=== PATIENT | male | born 1985 | race Caucasian/White ===

== ENCOUNTER 2018-02-01 11:15 | Emergency (ER) | payer MEDICAID ==
[~2018-02-01] VITALS: Ht 175.3 cm; Wt 90.9 kg
[~2018-02-01 11:15] MED LIST: CARB200T PO
[2018-02-01] MEDS ORDERED: CARB200T PO (15:27)
[2018-02-01 15:38] VITALS: BP 130/82
== END 2018-02-01 15:40 | disposition home or self-care (01) ==
LOC: ER 11:16
DX: G40.909 Epilepsy, unspecified, not intractable, without status epilepticus (principal); F12.90 Cannabis use, unspecified, uncomplicated; Z79.899 Other long term (current) drug therapy
CPT/HCPCS: 36415; 80156; 93005; 99285

== ENCOUNTER 2019-03-19 10:18 | Outpatient (CLI) | payer MEDICAID | END 2019-03-19 23:59 | disposition home or self-care (01) | LOC: RAD 10:18 | DX: R56.9 Unspecified convulsions (principal) | CPT/HCPCS: 95816 ==

== ENCOUNTER 2019-06-17 09:43 | Emergency (ER) | payer MEDICAID ==
[~2019-06-17] VITALS: Ht 172.7 cm; Wt 75.0 kg
[2019-06-17] MEDS ORDERED: levetiracetam inj 1,000 MG in normal saline 100ml IV soln 90 ML IV STA (09:46)
[2019-06-17] MEDS ORDERED: normal saline 1000ML IV soln IVB ONE (09:50)
[2019-06-17] MEDS ORDERED: LORazepam 2 mg/ml vial IV ONE (09:50)
[2019-06-17] MEDS ORDERED: magnesium 2GM in 50ml NS 50 ML IV ONE (09:50)
[2019-06-17] MEDS ORDERED: divalproex sodium 250mg tablet PO ONE (09:50)
[2019-06-17 10:25] LABS: BASOPHILS % (AUTO) 0.4 % (0-1); EOSINOPHILS # (AUTO) 0.1 X10'3 (0-0.9); EOSINOPHILS % (AUTO) 1.7 % (0-6); HEMATOCRIT 45.9 % (42.0-52.0); HEMOGLOBIN 15.5 g/dl (14.0-17.9); LYMPHOCYTES # (AUTO) 1.5 X10'3 (1.1-4.8); MEAN CORPUSCULAR HEMOGLOBIN 30.4 PG (27.0-31.0); MEAN CORPUSCULAR HGB CONC 33.8 g/dL (33.0-36.5); MEAN CORPUSCULAR VOLUME 89.7 FL (78-98); MEAN PLATELET VOLUME 7.7 FL (7.4-10.4); MONOCYTES # (AUTO) 0.4 X10'3 (0-0.9); MONOCYTES % (AUTO) 8.6 % (2-12); NEUTROPHILS # (AUTO) 3.1 X10'3 (1.8-7.7); NEUTROPHILS % (AUTO) 60.3 % (42-75); PLATELET COUNT 226 X10'3 (140-440); RED BLOOD COUNT 5.12 X10'6 (4.70-6.10); RED CELL DISTRIBUTION WIDTH 12.8 % (11.5-14.5); WHITE BLOOD COUNT 5.1 X10'3 (4.5-11.0)
[2019-06-17 10:47] LABS: ALANINE AMINOTRANSFERASE 42 U/L (12-78); ALBUMIN 3.9 G/DL (3.4-5.0); ALBUMIN/GLOBULIN RATIO 1.3 (1.1-1.5); ALKALINE PHOSPHATASE 93 IU/L (46-116); ANION GAP 12 (8-16); ASPARTATE AMINO TRANSFERASE 24 U/L (10-37); BILIRUBIN,TOTAL 0.4 MG/DL (0.1-1.0); BLOOD UREA NITROGEN 16 MG/DL (7-18); BUN/CREATININE RATIO 15.4 (5.4-32.0); CALCIUM 9.1 MG/DL (8.5-10.1); CHLORIDE 108 MMOL/L (99-107); CREATININE 1.04 MG/DL (0.60-1.10); GLUCOSE 114 MG/DL (70-104); POTASSIUM 3.9 MMOL/L (3.5-5.1); SODIUM 142 MMOL/L (135-145); TOTAL CARBON DIOXIDE 22.4 MMOL/L (24-32); eGFR 83 ML/MIN
[2019-06-17] MEDS ORDERED: DIVA500T9 PO (11:32)
--- NOTE | 2019-06-17 12:01 | NUR ---
MERCEDES GODINEZ DOES NOT WANT URINE
[2019-06-17 12:35] LABS: VALPROATE < 3.0 UG/ML (50-100)
[2019-06-17 13:51] VITALS: BP 114/58
== END 2019-06-17 13:45 | disposition home or self-care (01) ==
LOC: ER 09:43
DX: G40.909 Epilepsy, unspecified, not intractable, without status epilepticus (principal); F12.90 Cannabis use, unspecified, uncomplicated; Z79.899 Other long term (current) drug therapy
CPT/HCPCS: 36415; 80053; 80164; 85025; 93005; 96365; 96366; 96367; 96375; 99284; J1953; J2060; J3475; J7030

== ENCOUNTER 2020-10-13 11:34 | Emergency (ER) | payer MEDICAID ==
[~2020-10-13] VITALS: Ht 165.1 cm; Wt 72.7 kg
[2020-10-13 11:42] VITALS: BP 143/94
--- NOTE | 2020-10-13 11:50 | NUR ---
Pt arrived to unit via SO, pt. ambulatory. Pt calm and cooperative with staff. Pt. changed into unit scrubs, vital signs and physical assessment completed. Pt. denies SI. Pt. resting calmly in bed.
[2020-10-13 12:40] LABS: BASOPHILS % (AUTO) 0.3 % (0-1); EOSINOPHILS % (AUTO) 0.6 % (0-6); HEMATOCRIT 47.3 % (42.0-52.0); HEMOGLOBIN 16.1 g/dl (14.0-17.9); LYMPHOCYTES # (AUTO) 1.3 X10'3 (1.1-4.8); LYMPHOCYTES % (AUTO) 22.3 % (21-51); MEAN CORPUSCULAR HEMOGLOBIN 30.5 PG (27.0-31.0); MEAN CORPUSCULAR HGB CONC 34.1 g/dL (33.0-36.5); MEAN CORPUSCULAR VOLUME 89.4 FL (78-98); MEAN PLATELET VOLUME 7.3 FL (7.4-10.4); MONOCYTES # (AUTO) 0.5 X10'3 (0-0.9); MONOCYTES % (AUTO) 7.8 % (2-12); PLATELET COUNT 191 X10'3 (140-440); RED BLOOD COUNT 5.29 X10'6 (4.70-6.10); RED CELL DISTRIBUTION WIDTH 13.1 % (11.5-14.5); WHITE BLOOD COUNT 5.8 X10'3 (4.5-11.0)
[2020-10-13 12:48] LABS: URINE AMPHETAMINE SCREEN NEGATIVE (Neg); URINE BARBITUATE SCREEN NEGATIVE (Neg); URINE BENZODIAZEPINES SCREEN NEGATIVE (Neg); URINE CANNABINOID SCREEN POSITIVE (Neg); URINE COCAINE SCREEN NEGATIVE (Neg); URINE METHADONE SCREEN NEGATIVE (Neg); URINE OPIATE SCREEN NEGATIVE (Neg); URINE PHENCYCLIDINE SCREEN NEGATIVE (Neg)
[2020-10-13 12:49] LABS: CLARITY,URINE CLEAR (Clear); COLOR,URINE YELLOW (Yellow); GLUCOSE, URINE NEGATIVE (Neg); KETONES,URINE TRACE mg/dl (Neg); LEUKOCYTE ESTERASE ,URINE NEGATIVE (Neg); NITRITES, URINE NEGATIVE (Neg); OCCULT BLOOD,URINE NEGATIVE (Neg); PROTEIN,URINE NEGATIVE (Neg); UROBILINOGEN,URINE 0.2 E.U/dL (0.2-1.0)
[2020-10-13 12:49] LABS: ALANINE AMINOTRANSFERASE 50 U/L (12-78); ALBUMIN 3.9 G/DL (3.4-5.0); ALBUMIN/GLOBULIN RATIO 1.1 (1.1-1.5); ALKALINE PHOSPHATASE 69 IU/L (46-116); ANION GAP 10 (8-16); ASPARTATE AMINO TRANSFERASE 26 U/L (10-37); BILIRUBIN,TOTAL 0.5 MG/DL (0.1-1.0); BLOOD UREA NITROGEN 19 MG/DL (7-18); BUN/CREATININE RATIO 20.9 (5.4-32.0); CALCIUM 9.5 MG/DL (8.5-10.1); CHLORIDE 108 MMOL/L (99-107); CREATININE 0.91 MG/DL (0.60-1.10); GLUCOSE 90 MG/DL (70-104); POTASSIUM 4.3 MMOL/L (3.5-5.1); SODIUM 146 MMOL/L (135-145); TOTAL PROTEIN 7.5 G/DL (6.4-8.2); eGFR > 90 ML/MIN
[2020-10-13 12:54] LABS: UA COLLECTION TYPE CLN CATCH MIDSTREAM
[2020-10-13 13:05] LABS: ETHANOL < 0.010 GM/DL (0.0-0.010)
[2020-10-13] MEDS ORDERED: DIVA125T31 PO ×2 (13:36)
[2020-10-13] MEDS ORDERED: DIVA-76 PO (13:37)
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
--- NOTE | 2020-10-13 17:34 | NUR ---
Pt. discharging home with mother. Pt. clothes provided and awaiting ride home from mother.
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
--- NOTE | 2020-10-13 17:54 | NUR ---
Pt. discharged home with mother, accompanied out of facility by tech, pt. left ambulating and in no distress. Discharge instructions reviewed and signed by pt. Pt. personal belongings given to pt. Personal medicaitons left on unit., mother notified via phone and will be picking them up tomorrow morning.
[2020-10-13] MEDS ORDERED: divalproex sod 125mg tablet.DR PO SCH (21:00)
[2020-10-13] MEDS ORDERED: divalproex sodium 500mg tablet.DR PO SCH (21:00)
== END 2020-10-13 18:09 | disposition home or self-care (01) ==
LOC: ER 11:35
DX: F43.20 Adjustment disorder, unspecified (principal); R62.50 Unspecified lack of expected normal physiological development in childhood; R56.9 Unspecified convulsions; F12.90 Cannabis use, unspecified, uncomplicated; Z79.899 Other long term (current) drug therapy
CPT/HCPCS: 36415; 80053; 80305; 80320; 81003; 84443; 85025; 99285

== ENCOUNTER 2021-07-05 15:39 | Emergency (ER) | payer MEDICAID ==
[~2021-07-05] VITALS: Ht 165.1 cm; Wt 77.3 kg
[~2021-07-05 15:39] MED LIST changes: -CARB200T PO; +DIVA-76 PO; +DIVA125T31 PO
--- NOTE | 2021-07-05 16:20 | NUR ---
pt refuse to answer the question ,stated that "they think am crazy "asked [place] are you pt said "i am disable" refuse to answer the ques.assessment not done at this time.
--- NOTE | 2021-07-05 17:39 | NUR ---
pt sitting up in bed and smiling.
[2021-07-05] MEDS ORDERED: ziprasidone IM 20mg inj **IM only IM ONE (18:00)
[2021-07-05] MEDS ORDERED: diphenhydrAMINE 50 mg/ml inj IM ONE ×2 (18:00→23:00)
[2021-07-05 18:37] LABS: BASOPHILS % (AUTO) 0.3 % (0-1); EOSINOPHILS % (AUTO) 0.2 % (0-6); HEMATOCRIT 46.4 % (42.0-52.0); LYMPHOCYTES # (AUTO) 1.6 X10'3 (1.1-4.8); LYMPHOCYTES % (AUTO) 18.8 % (21-51); MEAN CORPUSCULAR HEMOGLOBIN 30.7 PG (27.0-31.0); MEAN CORPUSCULAR HGB CONC 34.6 g/dL (33.0-36.5); MEAN CORPUSCULAR VOLUME 88.7 FL (78-98); MEAN PLATELET VOLUME 7.2 FL (7.4-10.4); MONOCYTES # (AUTO) 0.6 X10'3 (0-0.9); MONOCYTES % (AUTO) 7.5 % (2-12); NEUTROPHILS # (AUTO) 6.1 X10'3 (1.8-7.7); NEUTROPHILS % (AUTO) 73.2 % (42-75); PLATELET COUNT 240 X10'3 (140-440); RED BLOOD COUNT 5.23 X10'6 (4.70-6.10); RED CELL DISTRIBUTION WIDTH 13.1 % (11.5-14.5); WHITE BLOOD COUNT 8.3 X10'3 (4.5-11.0)
--- NOTE | 2021-07-05 18:37 | NUR ---
pt medicated as per md orders ,pt cooperative while medicating the patient .no distress noted .will sbar to night nurse.
[2021-07-05 18:47] LABS: ALANINE AMINOTRANSFERASE 72 U/L (12-78); ALBUMIN 3.8 G/DL (3.4-5.0); ALKALINE PHOSPHATASE 69 IU/L (46-116); ANION GAP 10 (8-16); ASPARTATE AMINO TRANSFERASE 43 U/L (10-37); BILIRUBIN,TOTAL 0.4 MG/DL (0.1-1.0); BLOOD UREA NITROGEN 13 MG/DL (7-18); BUN/CREATININE RATIO 14.1 (5.4-32.0); CALCIUM 9.3 MG/DL (8.5-10.1); CHLORIDE 106 MMOL/L (99-107); CREATININE 0.92 MG/DL (0.60-1.10); ETHANOL < 0.010 GM/DL (0.0-0.010); GLUCOSE 98 MG/DL (70-104); POTASSIUM 4.1 MMOL/L (3.5-5.1); SODIUM 143 MMOL/L (135-145); TOTAL PROTEIN 7.7 G/DL (6.4-8.2); eGFR > 90 ML/MIN
--- NOTE | 2021-07-05 18:55 | NUR ---
Patient ambulated to room 23. He is already wearing scrubs. Patient will give urine sample as soon as he can.
[2021-07-05 19:38] LABS: URINE AMPHETAMINE SCREEN NEGATIVE (Neg); URINE BARBITUATE SCREEN NEGATIVE (Neg); URINE BENZODIAZEPINES SCREEN NEGATIVE (Neg); URINE CANNABINOID SCREEN POSITIVE (Neg); URINE COCAINE SCREEN NEGATIVE (Neg); URINE METHADONE SCREEN NEGATIVE (Neg); URINE OPIATE SCREEN NEGATIVE (Neg); URINE PHENCYCLIDINE SCREEN NEGATIVE (Neg)
--- NOTE | 2021-07-05 21:24 | NUR ---
The patient is asleep on his left side. RR even and unlabored. No s/s of distress.
[2021-07-05] MEDS ORDERED: LORazepam 2 mg/ml vial IM ONE (23:00)
[2021-07-05] MEDS ORDERED: haloperidol lactate 5mg/ml inj IM ONE (23:00)
--- NOTE | 2021-07-05 23:13 | NUR ---
Patient started getting agitated and attempted to elope. He was brought back to his bed, and orders received for chemical relief, B52. Patient was admiistered Ativan 2mg IM, Benadryl 50mg IM, and Haldol 10mg IM. He is lying in bed talking to himself, trying not to go to sleep. He tolerated injections well.
--- NOTE | 2021-07-05 23:30 | NUR ---
Patient has just crawled under his covers and going to sleep.
--- NOTE | 2021-07-06 00:36 | NUR ---
Patient is asleep on his right side. RR is even and unlabored. No s/s of distress.
--- NOTE | 2021-07-06 02:51 | NUR ---
Patient continues to sleep on his right side. Breathing is unlabored. No s/s of distress.
--- NOTE | 2021-07-06 06:25 | NUR ---
Assumed care of patient. Pt sleeping comfortably on right side, respirations even and unlabored.
[2021-07-06] MEDS ORDERED: DIVA125T31 PO (07:55)
[2021-07-06] MEDS ORDERED: divalproex sodium 500mg tablet.DR PO SCH (08:14)
[2021-07-06] MEDS ORDERED: divalproex sod 125mg tablet.DR PO SCH (08:14)
--- NOTE | 2021-07-06 08:55 | NUR ---
Patient awake, obtained U/A. Pt ate 100% of breakfast. Pt was cooperative with 1:1 assessment and medication. When asked how he is pt stated "A little drowsy." Pt takes Depakote 750 mg TID for seizure d/o. Pt reports no psyche history. Pt denies S/I, H/I, A/VH. Pt states the reason he is here "my sister called the talent scout." Pt reports some agitation "because I'm not at home." Pt states "I just want to go home to my bedroom." Pt's tox was positive for THC.
[2021-07-06 09:00] LABS: CLARITY,URINE SLIGHTLY CLOUDY (Clear); GLUCOSE, URINE NEGATIVE (Neg); KETONES,URINE 40 mg/dl (Neg); LEUKOCYTE ESTERASE ,URINE NEGATIVE (Neg); NITRITES, URINE NEGATIVE (Neg); OCCULT BLOOD,URINE NEGATIVE (Neg); PROTEIN,URINE NEGATIVE (Neg)
[2021-07-06 09:02] LABS: COLOR,URINE DARK YELLOW (Yellow); UA COLLECTION TYPE VOIDED
[2021-07-06 09:11] LABS: BACTERIA,URINE NONE SEEN /HPF (Neg); WBC,URINE 0-4 /HPF (0-4)
[2021-07-06 09:12] LABS: MUCUS STRANDS MANY /LPF (Neg); SQUAMOUS EPITHELIAL CELL,UR FEW /LPF (FEW)
[2021-07-06 09:14] LABS: RBC,URINE 0-2 /HPF (0-2)
--- NOTE | 2021-07-06 09:26 | NUR ---
PACKET FAXED TO [facility]
--- NOTE | 2021-07-06 10:34 | NUR ---
Pt's father and [facility] clinician at bedside.
--- NOTE | 2021-07-06 10:57 | NUR ---
Dad and [facility] clinician at bedside, trying to finalize a safety plan. Pt's mother isn't ready for pt to come home, so pt may be discharged to dad.
--- NOTE | 2021-07-06 11:38 | NUR ---
DISCHARGE NOTE: Patient was discharged from unit at 1135. Pt was A&Ox4. Pt was discharged to dad's care and left all personal belongings. Home medications were returned to patient. Pt refused mental health and substance use d/o treatment. Pt presented as slightly elevated and child-like at discharge, but was calm with process. Resource infomation were given to father as per his request.
[2021-07-06 11:47] VITALS: BP 123/83
== END 2021-07-06 11:53 | disposition home or self-care (01) ==
LOC: ER 15:39
DX: R45.850 Homicidal ideations (principal); F12.10 Cannabis abuse, uncomplicated; Z79.899 Other long term (current) drug therapy; Z20.822 Contact with and (suspected) exposure to COVID-19
CPT/HCPCS: 36415; 80053; 80305; 80320; 81001; 84443; 85025; 87635; 96372; 99285; C9803; J1200; J1630; J2060; J3486

== ENCOUNTER 2022-09-01 16:55 | Emergency (ER) | payer MEDICAID ==
[~2022-09-01] VITALS: Ht 167.6 cm; Wt 92.0 kg
[2022-09-01 17:12] VITALS: BP 127/81
--- NOTE | 2022-09-01 17:38 | NUR ---
Patient evaluated by provider and sent back to lobby per numerical control machine machinist Debbie. Awaiting room in main ED.
== END 2022-09-01 17:47 | disposition left against medical advice (07) ==
LOC: ER 16:56
DX: S00.83XA Contusion of other part of head, initial encounter (principal); F12.10 Cannabis abuse, uncomplicated; X58.XXXA Exposure to other specified factors, initial encounter; Y93.89 Activity, other specified; Y92.89 Other specified places as the place of occurrence of the external cause; Y99.8 Other external cause status
CPT/HCPCS: 99281

== ENCOUNTER 2022-12-01 19:15 | Emergency (ER) | payer MEDICAID ==
[~2022-12-01] VITALS: Ht 162.6 cm; Wt 75.0 kg
[2022-12-01] MEDS ORDERED: LORazepam 1 MG tablet PO ONE (19:35)
[2022-12-01] MEDS ORDERED: normal saline 1000ML IV soln IVB ONE (19:35)
[2022-12-01 20:09] LABS: BASOPHILS % (AUTO) 0.5 % (0-1); EOSINOPHILS # (AUTO) 0.1 X10'3 (0-0.9); EOSINOPHILS % (AUTO) 0.9 % (0-6); HEMATOCRIT 50.4 % (42.0-52.0); HEMOGLOBIN 17.1 g/dl (14.0-17.9); LYMPHOCYTES # (AUTO) 1.1 X10'3 (1.1-4.8); LYMPHOCYTES % (AUTO) 11.8 % (21-51); MEAN CORPUSCULAR HEMOGLOBIN 29.4 PG (27.0-31.0); MEAN CORPUSCULAR HGB CONC 33.9 g/dL (33.0-36.5); MEAN CORPUSCULAR VOLUME 86.8 FL (78-98); MONOCYTES # (AUTO) 0.8 X10'3 (0-0.9); MONOCYTES % (AUTO) 8.4 % (2-12); NEUTROPHILS # (AUTO) 7.3 X10'3 (1.8-7.7); NEUTROPHILS % (AUTO) 78.4 % (42-75); PLATELET COUNT 249 X10'3 (140-440); RED BLOOD COUNT 5.81 X10'6 (4.70-6.10); RED CELL DISTRIBUTION WIDTH 13.8 % (11.5-14.5); WHITE BLOOD COUNT 9.3 X10'3 (4.5-11.0)
[2022-12-01 20:24] LABS: ALANINE AMINOTRANSFERASE 48 U/L (12-78); ALBUMIN 4.2 G/DL (3.4-5.0); ALBUMIN/GLOBULIN RATIO 1.2 (1.1-1.5); ALKALINE PHOSPHATASE 93 IU/L (46-116); ANION GAP 14 (8-16); ASPARTATE AMINO TRANSFERASE 25 U/L (10-37); BILIRUBIN,TOTAL 0.4 MG/DL (0.1-1.0); BLOOD UREA NITROGEN 12 MG/DL (7-18); CALCIUM 9.8 MG/DL (8.5-10.1); CHLORIDE 104 MMOL/L (99-107); GLUCOSE 114 MG/DL (70-104); SODIUM 140 MMOL/L (135-145); TOTAL CARBON DIOXIDE 22.3 MMOL/L (24-32); TOTAL PROTEIN 7.8 G/DL (6.4-8.2); eGFR 69 ML/MIN
[2022-12-01 20:26] LABS: POTASSIUM 5.5 MMOL/L (3.5-5.1)
[2022-12-01] MEDS ORDERED: normal saline 1000ml 1,000 ML IV ONE (20:30)
[2022-12-01 21:05] LABS: CLARITY,URINE CLEAR (Clear); COLOR,URINE YELLOW (Yellow); GLUCOSE, URINE NEGATIVE (Neg); KETONES,URINE 15 mg/dl (Neg); LEUKOCYTE ESTERASE ,URINE NEGATIVE (Neg); NITRITES, URINE NEGATIVE (Neg); OCCULT BLOOD,URINE NEGATIVE (Neg); PROTEIN,URINE NEGATIVE (Neg); UROBILINOGEN,URINE 0.2 E.U/dL (0.2-1.0)
[2022-12-01 21:09] LABS: UA COLLECTION TYPE CLN CATCH MIDSTREAM
[2022-12-01 21:54] LABS: TOTAL CARBON DIOXIDE 26.6 MMOL/L (24-32)
[2022-12-01 22:24] LABS: ALANINE AMINOTRANSFERASE 38 U/L (12-78); ALBUMIN 3.5 G/DL (3.4-5.0); ALBUMIN/GLOBULIN RATIO 1.2 (1.1-1.5); ALKALINE PHOSPHATASE 90 IU/L (46-116); ANION GAP 6 (8-16); ASPARTATE AMINO TRANSFERASE 18 U/L (10-37); BILIRUBIN,TOTAL 0.2 MG/DL (0.1-1.0); BLOOD UREA NITROGEN 13 MG/DL (7-18); BUN/CREATININE RATIO 12.4 (10.0-20.0); CALCIUM 8.5 MG/DL (8.5-10.1); CHLORIDE 108 MMOL/L (99-107); CREATININE 1.05 MG/DL (0.60-1.10); GLUCOSE 102 MG/DL (70-104); POTASSIUM 4.4 MMOL/L (3.5-5.1); SODIUM 141 MMOL/L (135-145); TOTAL PROTEIN 6.4 G/DL (6.4-8.2); eGFR 80 ML/MIN
[2022-12-01 22:54] VITALS: BP 121/80
== END 2022-12-01 22:43 | disposition home or self-care (01) ==
LOC: ER 19:16
DX: G40.909 Epilepsy, unspecified, not intractable, without status epilepticus (principal); E86.0 Dehydration; E87.5 Hyperkalemia; F12.90 Cannabis use, unspecified, uncomplicated
CPT/HCPCS: 36415; 80053; 81003; 82948; 85025; 93005; 96360; 96361; 99285; J7030